=== PATIENT | female | born 1995 | race African-American/Black ===

== ENCOUNTER 2024-04-15 02:00 | Emergency (ER) | payer OTHER ==
[~2024-04-15] VITALS: Ht 160 cm; Wt 81.8 kg
[2024-04-15 02:45] LABS: BASO % 0.4 % (0.0-1.0); EOS # 0.1 10^3/uL (0.0-0.5); EOS % 1.2 % (0.0-3.0); HEMATOCRIT 39.4 % (36.0-47.0); HEMOGLOBIN 13.7 g/dl (12.0-15.5); LYMPH # 1.9 10^3/uL (1.5-5.0); LYMPH % 22.1 % (24.0-44.0); MEAN CORPUSCULAR HEMOGLOBIN 31.6 pg (27.0-33.0); MEAN CORPUSCULAR HGB CONC 34.8 g/dl (32.0-36.5); MEAN CORPUSCULAR VOLUME 90.8 fl (80.0-96.0); MONO # 0.8 10^3/uL (0.0-0.8); NEUTROPHILS # 5.7 10^3/uL (1.5-8.5); NEUTROPHILS % 66.8 % (36.0-66.0); PLATELET COUNT, AUTOMATED 233 10^3/uL (150-450); RED BLOOD COUNT 4.34 10^6/uL (4.00-5.40); WHITE BLOOD COUNT 8.5 10^3/uL (4.0-10.0)
[2024-04-15 03:04] LABS: LIPASE 57 U/L (12-53)
[2024-04-15 03:06] LABS: ALBUMIN 3.8 G/DL (3.2-5.2); ALKALINE PHOSPHATASE 122 U/L (46-116); ALT/SGPT 37 U/L (7.0-40); AST/SGOT 30 U/L (<34); BILIRUBIN,DIRECT < 0.1 MG/DL (<0.4); BILIRUBIN,TOTAL 0.3 MG/DL (0.3-1.2); BLOOD UREA NITROGEN 13 MG/DL (9-23); CALCIUM LEVEL 9.8 MG/DL (8.5-10.1); CARBON DIOXIDE LEVEL 24 MMOL/L (20-31); CHLORIDE LEVEL 105 MMOL/L (98-107); CREATININE FOR GFR 0.62 MG/DL (0.55-1.30); GLOMERULAR FILTRATION RATE > 60.0 (>60); GLUCOSE, FASTING 151 MG/DL (60-100); POTASSIUM SERUM 3.5 MMOL/L (3.5-5.1); SODIUM LEVEL 137 MMOL/L (136-145); TOTAL PROTEIN 6.8 G/DL (5.7-8.2)
[2024-04-15] MEDS ORDERED: ISOVUE-370 76% 100ML VIAL As Ordered ONE (04:46)
[2024-04-15] MEDS: KETOROLAC 30 MG/ML 1ML VIAL IV ONE (04:47)
[2024-04-15 06:30] VITALS: BP 104/63; O2SAT 99
[2024-04-15 06:34] VITALS: TEMP 97.6
== END 2024-04-15 06:35 | disposition home or self-care (01) ==
LOC: M ED 02:00
DX: A09 Infectious gastroenteritis and colitis, unspecified (principal); E05.90 Thyrotoxicosis, unspecified without thyrotoxic crisis or storm; R16.0 Hepatomegaly, not elsewhere classified
CPT/HCPCS: 74177; 80048; 80076; 81001; 83605; 83690; 85025; 87086; 93041; 99285; J1885; Q9967

== ENCOUNTER → 2024-09-21 | Outpatient (REF) | payer OTHER | LOC: M LAB REF 08:52 | PROVIDERS: ATTEND Ophthalmology | DX: D23.121 Other benign neoplasm of skin of left upper eyelid, including canthus (principal) ==